=== PATIENT | female | born 1980 | race Caucasian/White ===

== ENCOUNTER → 2017-05-29 | Outpatient (CLI) | payer OTHER ==
[~2017-05-29] MED LIST: CHOL400T; LEVO125T5 PO; METH0.2T39 PO; MTR600X PO
--- NOTE | 2017-05-29 18:43 | DIAGNOSTIC IMAGING REPORT ---
LEFT HIP 2 VIEWS HISTORY: Left hip pain. COMPARISON: None. FINDINGS: There is no fracture or dislocation. Soft tissues are unremarkable. Cartilage spaces are maintained. The visualized pelvic bones are intact. Question of subtle lucent 3 cm lesion within the left femoral neck. IMPRESSION: 1. No fracture or dislocation within the left hip. 2. Possible subtle 3 cm lucent lesion within the left femoral neck. This may be due to overlapping soft tissues. Regardless, this has a benign appearance. Nonemergent left hip MRI can be used for confirmation. Electronically signed by: Hasmukh Hood M.D. 05/29/2017 6:41 PM Dictated Date/Time: 05/29/2017 6:22 PM
== END | disposition home or self-care (01) ==
LOC: C.RAD 17:48
PROVIDERS: ATTEND Family Medicine
DX: M25.552 Pain in left hip (principal)